=== PATIENT | male | born 1940 | race Caucasian/White ===

== ENCOUNTER 2021-12-10 04:45 | Day surgery (SDC) | payer OTHER, BC ==
[2021-12-05 09:59] VITALS: BMI 17.4
[2021-12-10] MEDS ORDERED: LIDOCAINE HCL/PF 1% SDV 5ML VIAL ONE (07:33)
[2021-12-10] MEDS ORDERED: LIDOCAINE HCL/PF 2% SDV 5ML VIAL ONE (07:50)
[2021-12-10] MEDS ORDERED: LIDOCAINE HCL/PF 2% SDV 5ML VIAL PNB ONE (08:58)
[2021-12-10] MEDS ORDERED: LIDOCAINE HCL 1% PRESERVATIVE FREE - 30ML VIAL IJ ONE ×2 (08:58)
[2021-12-10 09:42] VITALS: BP 148/79; PULSE 74; TEMP 98.1
== END 2021-12-10 10:26 | disposition home or self-care (01) ==
LOC: JASU-SURG 04:45
PROVIDERS: ATTEND Pain Medicine Pain Medicine
PROC: 01HY3MZ Insertion of Neurostimulator Lead into Peripheral Nerve, Percutaneous Approach (ICD-10-PCS; principal; 2021-12-10 08:45)
DX: G89.4 Chronic pain syndrome (principal); M54.50 Low back pain, unspecified
CPT/HCPCS: 64555; C1897; 76000-TC-FY